=== PATIENT | female | born 1985 | race Caucasian/White ===

== ENCOUNTER 2024-04-15 12:21 | Emergency (ER) | payer MEDICAID ==
[~2024-04-15] VITALS: Ht 162.6 cm; Wt 70.0 kg
[2024-04-15] MEDS ORDERED: IBUP-2029 MT (12:48)
[2024-04-15] MEDS: IBUPROFEN 600MG TABLET PO ONE (13:09)
[2024-04-15 13:23] VITALS: BP 108/70; PULSE 58; RESP 19; TEMP 98.3
== END 2024-04-15 13:25 | disposition home or self-care (01) ==
LOC: ER 12:21
DX: M79.10 Myalgia, unspecified site (principal); Z98.890 Other specified postprocedural states
CPT/HCPCS: 99282

== ENCOUNTER 2024-09-11 06:05 | Emergency (ER) | payer MEDICAID ==
[~2024-09-11] VITALS: Ht 162.6 cm; Wt 58.0 kg
[~2024-09-11 06:05] MED LIST: IBUP-2029 MT
[2024-09-11 06:23] VITALS: O2SAT 98
[2024-09-11] MEDS ORDERED: ONDANSETRON HCL 4MG TABLET PO ONE (07:15)
[2024-09-11] MEDS ORDERED: ACETAMINOPHEN 325MG TABLET PO ONE (07:15)
[2024-09-11] MEDS ORDERED: MAGNESIUM/ALUMINUM HYDROXIDE/SIMETHICONE 30ML UDC PO ONE (07:15)
[2024-09-11] MEDS ORDERED: FAMOTIDINE 20MG TABLET PO ONE (07:15)
[2024-09-11] MEDS ORDERED: FAMO-135 MT (08:32)
[2024-09-11 08:33] LABS: CHLORIDE 106 mEq/L (98-107); POTASSIUM 4.2 mEq/L (3.5-5.1); SODIUM 139 mEq/L (136-145)
[2024-09-11 08:34] LABS: CALCIUM 9.4 mg/dL (8.7-10.4); CARBON DIOXIDE 28 mEq/L (21-32)
[2024-09-11 08:35] LABS: BASOPHILS % 0.3 % (0.0-2.0); EOSINOPHILS % 7.6 % (0.0-5.0); HEMATOCRIT. 39.3 % (36.0-48.0); HEMOGLOBIN. 13.4 g/dL (12.0-16.0); LYMPHOCYTES % 34.7 % (20.0-50.0); MEAN CORPUSCULAR HEMOGLOBIN 31.4 pg (28.0-32.0); MEAN CORPUSCULAR HGB CONC 34.1 g/dL (31.0-37.0); MEAN CORPUSCULAR VOLUME 92.2 fL (81.0-99.0); MEAN PLATELET VOLUME 8.2 fl (7.4-10.4); NEUTROPHILS % 47.4 % (40.0-76.0); PLATELET 356 x1000/uL (130-400); RED BLOOD CELL COUNT 4.26 mill/uL (4.2-5.4); RED CELL DISTRIBUTION WIDTH 13.2 % (11.6-14.6); WHITE BLOOD COUNT 5.7 x1000/uL (4.5-11.0)
[2024-09-11 08:39] LABS: CREATININE 0.6 mg/dL (0.6-1.0); GLUCOSE 91 mg/dL (70-105); UREA NITROGEN BLOOD 8 mg/dL (9-23)
[2024-09-11 08:54] LABS: HCG SCREEN NEGATIVE
[2024-09-11 09:43] VITALS: BP 109/64; PULSE 66; RESP 16; TEMP 36.78072; O2SAT 98
[2024-09-11] MEDS: FAMOTIDINE 20MG TABLET PO NR (09:43)
[2024-09-11] MEDS: MAGNESIUM/ALUMINUM HYDROXIDE/SIMETHICONE 30ML UDC PO NR (09:43)
[2024-09-11] MEDS: ACETAMINOPHEN 325MG TABLET PO NR (09:43)
[2024-09-11] MEDS: ONDANSETRON HCL 4MG TABLET PO NR (09:43)
== END 2024-09-11 10:15 | disposition home or self-care (01) ==
LOC: ER 06:17
DX: R10.13 Epigastric pain (principal); E03.9 Hypothyroidism, unspecified; Z79.890 Hormone replacement therapy; Z88.1 Allergy status to other antibiotic agents
CPT/HCPCS: 99284; 80048; 84703; 83690; 85025; 36415; Q0162

== ENCOUNTER 2024-09-26 18:52 | Emergency (ER) | payer MEDICAID ==
[~2024-09-26] VITALS: Ht 154.9 cm; Wt 60.0 kg
[~2024-09-26 18:52] MED LIST changes: +FAMO-135 MT
[2024-09-26 19:21] VITALS: BP 101/72; PULSE 81; RESP 18; TEMP 37.4; O2SAT 100
[2024-09-26 21:18] LABS: BASOPHILS % 0.5 % (0.0-2.0); EOSINOPHILS % 4.9 % (0.0-5.0); HEMOGLOBIN. 14.1 g/dL (12.0-16.0); LYMPHOCYTES % 17.3 % (20.0-50.0); MEAN CORPUSCULAR HEMOGLOBIN 30.7 pg (28.0-32.0); MEAN CORPUSCULAR HGB CONC 33.5 g/dL (31.0-37.0); MEAN CORPUSCULAR VOLUME 91.6 fL (81.0-99.0); MEAN PLATELET VOLUME 8.5 fl (7.4-10.4); MONOCYTES % 9.4 % (2.0-8.0); NEUTROPHILS % 67.9 % (40.0-76.0); PLATELET 277 x1000/uL (130-400); RED BLOOD CELL COUNT 4.59 mill/uL (4.2-5.4); WHITE BLOOD COUNT 7.2 x1000/uL (4.5-11.0)
[2024-09-26 21:32] LABS: CALCIUM 9.3 mg/dL (8.7-10.4); CARBON DIOXIDE 24 mEq/L (21-32); CHLORIDE 107 mEq/L (98-107); POTASSIUM 3.8 mEq/L (3.5-5.1); SODIUM 139 mEq/L (136-145)
[2024-09-26 21:38] LABS: CREATININE 0.7 mg/dL (0.6-1.0); GLUCOSE 134 mg/dL (70-105); UREA NITROGEN BLOOD 8 mg/dL (9-23)
[2024-09-26 23:32] LABS: CLARITY URINE CLEAR (CLEAR); COLOR URINE YELLOW (YELLOW); GLUCOSE URINE NEGATIVE (NEGATIVE); KETONES URINE TRACE (NEGATIVE); LEUKOCYTE ESTERASE URINE 1+ (NEGATIVE); NITRITE URINE NEGATIVE (NEGATIVE); OCCULT BLOOD URINE 3+ (NEGATIVE); PH URINE 5.5 (4.5-8.0); PROTEIN URINE TRACE (NEGATIVE); SPECIFIC GRAVITY URINE 1.028 (1.005-1.030)
[2024-09-27] MEDS: ACETAMINOPHEN 325MG TABLET PO ONE (00:16)
[2024-09-27 02:01] LABS: UCG SCREEN NEGATIVE
[2024-09-27 05:07] LABS: SQUAMOUS EPITHELIAL CELL URINE FEW /lpf (RARE/1+)
[2024-09-27 05:08] LABS: RBC URINE 15-25 /hpf (0-2); WBC URINE 0-2 /hpf (0-2)
[2024-09-27 05:10] LABS: BACTERIA URINE NONE SEEN
== END 2024-09-27 00:19 | disposition home or self-care (01) ==
LOC: ER 18:52
DX: B34.9 Viral infection, unspecified (principal); E03.9 Hypothyroidism, unspecified; Z88.1 Allergy status to other antibiotic agents
CPT/HCPCS: 36415; 80048; 81003; 81025; 85025; 99283